=== PATIENT | male | born 1980 | race Caucasian/White ===

== ENCOUNTER 2016-08-21 20:13 | Emergency (ER) | payer BC ==
[~2016-08-21] VITALS: Ht 175.3 cm; Wt 96.0 kg
[~2016-08-21 20:13] MED LIST: ANAPROX DS550 MG OR; CHERATUSSIN PO; MEDDOSEPAK PO; NO CURRENT MEDS; NO HOME MEDS; POLYTRIM OU; TRIAMCINOLON0.11 EX; ULTRAM50 MG OR; ZPAK PO
[2016-08-21] MEDS ORDERED: NAPROSYN500 MG PO (20:58)
[2016-08-21 21:07] VITALS: BP 139/87
== END 2016-08-21 21:07 | disposition home or self-care (01) | DRG 558 ==
LOC: ED 20:13
DX: M75.91 Shoulder lesion, unspecified, right shoulder (principal)

== ENCOUNTER 2020-07-27 10:23 | Emergency (ER) | payer OTHER ==
[~2020-07-27] VITALS: Ht 177.8 cm; Wt 100.0 kg
[~2020-07-27 10:23] MED LIST changes: +NAPROSYN500 MG PO; +ROBITUSSIN AC10 ML PO
[2020-07-27 11:55] VITALS: BP 125/79
== END 2020-07-27 12:02 | disposition home or self-care (01) | DRG 556 ==
LOC: ED 10:23
DX: M25.571 Pain in right ankle and joints of right foot (principal); F17.200 Nicotine dependence, unspecified, uncomplicated; W17.2XXA Fall into hole, initial encounter; Y92.007 Garden or yard of unspecified non-institutional (private) residence as the place of occurrence of the external cause

== ENCOUNTER 2023-12-06 10:29 | Emergency (ER) | payer OTHER ==
[~2023-12-06] VITALS: Ht 177.8 cm; Wt 113.0 kg
[2023-12-06 10:37] VITALS: BP 128/84
[2023-12-06] MEDS ORDERED: POVIDONE IODINE 0.5 OZ/BTL TOP STA (10:41)
[2023-12-06] MEDS ORDERED: LIDOcaine HCl 1% (Local Anesth.) 20 ML VIAL STI STA (10:41)
[2023-12-06] MEDS ORDERED: BACTRIM DS1 TAB PO (10:44)
[2023-12-06 11:48] VITALS: BP 131/81
== END 2023-12-06 11:49 | disposition home or self-care (01) ==
LOC: ED 10:29
DX: L02.31 Cutaneous abscess of buttock (principal); Z72.0 Tobacco use

== ENCOUNTER 2024-05-06 15:21 | Emergency (ER) | payer OTHER ==
[~2024-05-06] VITALS: Ht 177.8 cm; Wt 113.0 kg
[2024-05-06] VITALS (10 sets, daily range): BP systolic 117–136; BP diastolic 60–112
[~2024-05-06 15:21] MED LIST changes: +BACTRIM DS1 TAB PO
[2024-05-06] MEDS ORDERED: SODIUM CHLORIDE 0.9% 1,000 ML IV STA (16:22)
[2024-05-06] MEDS ORDERED: ONDANSETRON HCl 4 MG/2 ML SDV IV STA (16:22)
[2024-05-06] MEDS ORDERED: Pantoprazole Sodium 40 MG VIAL (Protonix) IV STA (16:22)
[2024-05-06 16:36] LABS: BASO% 0.4 % (0-3); EOS% 1.2 % (0-8); HEMOGLOBIN 13.7 g/dl (14.0-18.0); IMMATURE GRANULOCYTES 0.2 % (0.0-5.0); LYMPH% 32.9 % (15-41); MEAN CELL VOLUME 90.7 fL CALC (80.0-100.0); MEAN CORPUSCULAR HGB 30.3 pG CALC (26.0-32.0); MEAN CORPUSCULAR HGB CONC 33.4 g/dL CAL (32.0-36.0); MONO% 5.4 % (2-13); NEUT# 6.15 thou/uL (1.82-7.42); NEUT% 59.9 % (42-76); RED BLOOD COUNT 4.52 mill/uL (4.70-6.10); RED CELL DISTRI WIDTH 12.5 % (11.5-15.5)
[2024-05-06 16:45] LABS: ALBUMIN 4.6 g/dL (3.2-5.0); BILIRUBIN, TOTAL 0.4 mg/dL (0.2-1.3); CREATININE 0.7 mg/dL (0.7-1.3); TOTAL PROTEIN 7.8 g/dL (6.3-8.2)
[2024-05-06] MEDS ORDERED: DICYCLOMINE HYD10 MG PO (19:16)
[2024-05-06] MEDS ORDERED: BACTRIM DS1 TAB PO (19:16)
[2024-05-06] MEDS ORDERED: SULFAMETHOXAZOLE W/TRIMETHOPRI 1 COMBO TAB PO ONE (19:20)
== END 2024-05-06 19:32 | disposition home or self-care (01) ==
LOC: ED 15:21
PROVIDERS: Nurse Practitioner
DX: R10.12 Left upper quadrant pain (principal); R93.5 Abnormal findings on diagnostic imaging of other abdominal regions, including retroperitoneum; Z93.3 Colostomy status; Z72.0 Tobacco use; Z87.828 Personal history of other (healed) physical injury and trauma
CPT/HCPCS: J2405; J2470; Q9967